=== PATIENT | male | born 1985 | race Caucasian/White ===

== ENCOUNTER 2018-11-03 08:04 | Day surgery (SDC) | payer OTHER ==
[~2018-11-03 08:04] MED LIST: Lactated Ringers 1,000 ML IV SCH; Sodium Chloride 0.9% 10 ML Syringe FLUSH PRN; Sodium Chloride 0.9% 2.5 ML Syringe FLUSH PRN
--- NOTE | 2018-11-03 09:06 | PCM.PREANE ---
Preanesthetic Assessment - Anesthesia/Transfusion/Family Hx Anesthesia History: Prior Anesthesia Without Reaction Transfusion History: No Prior Transfusion(s) Type of Transfusion Reactions: Reports: Unknown Intubation History: Unknown - Review of Systems General: No Symptoms Pulmonary: No Symptoms Cardiovascular: No Symptoms Gastrointestinal: No Symptoms Neurological: No Symptoms Other: Reports: None - Physical Assessment NPO Status Date: 11/02/18 NPO Status Time: 23:00 O2 Sat by Pulse Oximetry: 97 Respiratory Rate: 16 Vital Signs: Last Vital Signs Temp 98.8 F 11/03/18 08:30 Pulse 72 11/03/18 08:30 Resp 16 11/03/18 08:30 BP 125/76 11/03/18 08:30 Pulse Ox 97 11/03/18 08:30 Height: 5 ft 10 in Weight: 135.624 kg ASA Class: 2 Mental Status: Alert & Oriented x3 Airway Class: Mallampati = 1 Dentition: Reports: Normal Dentition ROM/Head Extension: Full Lungs: Clear to Auscultation, Normal Respiratory Effort Cardiovascular: Regular Rate, Regular Rhythm - Allergies Allergies/Adverse Reactions: Allergies Allergy/AdvReac Type Severity Reaction Status Date / Time Penicillins Allergy Anxiety Verified 10/29/18 08:07 tuna Allergy Diarrhea Uncoded 08/26/18 10:13 - Blood Blood Available: No - Anesthesia Plan Pre-Op Medication Ordered: None - Acknowledgements Anesthesia Type Planned: General Anesthesia, MAC Pt an Appropriate Candidate for the Planned Anesthesia: Yes Alternatives and Risks of Anesthesia Discussed w Pt/Guardian: Yes Pt/Guardian Understands and Agrees with Anesthesia Plan: Yes Additional Comments: PMH: recent bout of diverticulitis, WPW s/p ablation. still having asymptomatic episodes on 30 day holter monitoring, mo with bmi of 44 PLAN: mac/tiva PreAnesthesia Questionnaire HEENT History: Other HEENT History: wears glasses Cardiovascular History: Reports: Other (See Below) Other Cardiovascular History: grey parkinson white syndrome Respiratory History: Reports: None Gastrointestinal History: Reports: Other (See Below) Other Gastrointestinal History: diverticulitis Genitourinary History: Reports: None Musculoskeletal History: Reports: Fracture Other Musculoskeletal History: hx fx wrist Neurological History: Reports: None Psychiatric History: Reports: None Endocrine/Metabolic History: Reports: Obesity/BMI 30+ Hematologic History: Reports: None Immunologic History: Reports: None Oncologic (Cancer) History: Reports: None Dermatologic History: Reports: None - Infectious Disease History Infectious Disease History: Reports: Chicken Pox - Past Surgical History Head Surgeries/Procedures: Reports: None HEENT Surgical History: Reports: None Cardiovascular Surgical History: Reports: Cardiac Ablation, Other (See Below) Other Cardiovascular Surgeries/Procedures: cardiac ablation x2 for grey- parkinson-white syndrome in and GI Surgical History: Reports: Hernia, Inguinal Other GI Surgeries/Procedures: inguinal hernia repair Male Surgical History: Reports: Vasectomy Musculoskeletal Surgical History: Reports: Arthroscopic Knee Other Musculoskeletal Surgeries/Procedures:: left knee arthroscopy - SUBSTANCE USE Smoking Status *Q: Current Every Day Smoker Tobacco Use Within Last Twelve Months: Cigarettes Recreational Drug Use History: No - HOME MEDS Home Medications: Home Meds Acetaminophen [Tylenol Extra Strength] 1 - 2 tab PO ASDIRECTED PRN 08/26/18 [ History] Inulin/Chromium Picolinate [Fiber Gummies] 1 tab.chew CHEW DAILY 10/29/18 [ History] L.acidoph,Paracasei, B.lactis [Probiotic] 1 tab PO DAILY 10/29/18 [History] Multivitamin [Multivitamins] 1 tab PO DAILY 10/29/18 [History] - CURRENT (IN HOUSE) MEDS Current Meds: Current Medications Lactated Ringer's (Ringers, Lactated) 1,000 mls @ 125 mls/hr IV ASDIRECTED ALBERTA Last Admin: 11/03/18 08:47 Dose: 125 mls/hr Sodium Chloride (Saline Flush) 10 ml FLUSH ASDIRECTED PRN PRN Reason: Keep Vein Open Sodium Chloride (Saline Flush) 2.5 ml FLUSH ASDIRECTED PRN PRN Reason: Keep Vein Open Sodium Chloride (Saline Flush) 10 ml FLUSH ASDIRECTED PRN PRN Reason: Keep Vein Open Sodium Chloride (Saline Flush) 2.5 ml FLUSH ASDIRECTED PRN PRN Reason: Keep Vein Open
[2018-11-03] MEDS ORDERED: Propofol 200 MG/20 ML SDV ONE ×2 (09:49→10:22)
[2018-11-03] MEDS ORDERED: Midazolam 1 MG/ML 2 ML SDV ONE (09:49)
[2018-11-03] MEDS ORDERED: fentaNYL 100 MCG/2 ML SDV ONE (09:49)
--- NOTE | 2018-11-03 10:37 | PCM.OPNOTE ---
- General Post-Op/Procedure Note Date of Surgery/Procedure: 11/03/18 Operative Procedure(s): EGD and Colonoscopy Findings: EGD showed some reflux and the colonoscopy was normal. Pre Op Diagnosis: GERD and history of diverticulosis Post-Op Diagnosis: Reflux Anesthesia Technique: [place] Primary Surgeon: Melisa Benitez Complications: None Condition: Good
--- NOTE | 2018-11-03 11:32 | PCM.POSTAN ---
POST ANESTHESIA ASSESSMENT - MENTAL STATUS Mental Status: Alert, Oriented - RESPIRATORY Respiratory Status: Respiratory Rate WNL, Airway Patent, O2 Saturation Stable - CARDIOVASCULAR CV Status: Pulse Rate WNL, Blood Pressure Stable - GASTROINTESTINAL GI Status: No Symptoms - POST OP HYDRATION Hydration Status: Adequate & Stable
--- NOTE | 2018-11-03 11:33 | PCM48HPAN ---
Post Anesthesia Note - EVALUATION WITHIN 48HRS OF ANESTHETIC Vital Signs in Normal Range: Yes Patient Participated in Evaluation: Yes Respiratory Function Stable: Yes Airway Patent: Yes Cardiovascular Function Stable: Yes Hydration Status Stable: Yes Pain Control Satisfactory: Yes Nausea and Vomiting Control Satisfactory: Yes Mental Status Recovered: Yes Resp Rate: 48
[2018-11-03 12:50] VITALS: BP 116/61
--- NOTE | 2018-11-04 12:18 | OR ---
SURGEON: IDALIA FRANCISCO MD DATE OF PROCEDURE: 11/03/2018 PREOPERATIVE DIAGNOSES: 1. History of diverticulitis. 2. History of hiatal hernia with gastroesophageal reflux disease. POSTOPERATIVE DIAGNOSES: 1. Gastroesophageal reflux disease. 2. Diverticulosis. PROCEDURES PERFORMED: Diagnostic esophagogastroduodenoscopy and colonoscopy. ANESTHESIA: MAC. INSTRUMENT USED: Olympus endoscope and colonoscope. EXTENT OF EXAM: To the cecum. PREPARATION: Good. LIMITATIONS: None. INDICATION FOR EXAMINATION: The patient is a 33-year-old male who was recently treated for acute diverticulitis. He also has history of hiatal hernia associated with GERD. His GERD symptoms have been worsening despite a medical treatment. His diverticulitis has resolved; however, he continues to have frequent bowel movements. We discussed the need for diagnostic EGD and colonoscopy. The patient and I discussed the procedure, the expected perioperative course, and risks including bleeding, infection, or damage to surrounding structures including perforation. The patient verbalized understanding and wishes to proceed. PROCEDURE IN DETAIL: The patient was brought to the endoscopy suite and placed in a left lateral decubitus position. A time-out was completed verifying the patient's name, age, date of , allergies, and procedure to be performed. Monitored anesthesia care was induced and continuous oxygen was provided via nasal cannula throughout the procedure. A bite block was placed in the patient's mouth. After adequate sedation was achieved, a well lubricated endoscope was placed in the patient's mouth and advanced under direct visualization to the second portion of duodenum. This appeared normal and a photograph was taken. The scope was then straightened out and fully withdrawn while examining the color, texture, anatomy, and integrity of the mucosa from the cecum to the anal canal. The duodenum and stomach both appeared normal. When I brought the scope into the stomach and retroflexed, I did not see any evidence of a hiatal hernia. Biopsies were taken of the gastric antrum, body, and fundus and sent for histologic review and H. pylori testing. The scope was brought into the distal esophagus. This appeared normal and a photograph was taken. A biopsy was taken of the distal esophageal mucosa and sent to pathology to look for any signs of esophagitis. The remainder of the esophageal mucosa was free of pathology. The scope was then removed and this portion of procedure was terminated. A digital rectal exam was performed. This exam was within normal limits. A well lubricated colonoscope was inserted in the rectum and advanced under direct visualization to the level of the cecum. The cecum was identified by both visual and anatomic landmarks. A photograph was taken of the cecal cap as well as with the scope retroflexed within the cecum. The scope was then straightened out and fully withdrawn while examining the color, texture, anatomy, and integrity of the mucosa from the cecum to the anal canal. The findings were consistent with grossly normal appearing colonic mucosa. I did not see a large burden of diverticula within the sigmoid colon. The scope was then brought into the rectum and retroflexed to allow visualization of the anal canal opening. This appeared normal and a photograph was taken. The scope was then straightened out and fully withdrawn. The cecum to anus time was 7 minutes. The patient tolerated the procedure well and was taken to PACU in stable condition. ENDOSCOPIC DIAGNOSES: 1. Gastroesophageal reflux disease. 2. Diverticulosis. RECOMMENDATIONS: Follow up in clinic in 2 weeks. FRANNY العراقي /[id number]
== END 2018-11-03 11:20 | disposition home or self-care (01) ==
LOC: MW.SDS 08:04
PROVIDERS: ATTEND Surgery
DX: K21.9 Gastro-esophageal reflux disease without esophagitis (principal); K29.50 Unspecified chronic gastritis without bleeding; K20.9 Esophagitis, unspecified; K52.9 Noninfective gastroenteritis and colitis, unspecified; K57.30 Diverticulosis of large intestine without perforation or abscess without bleeding; E66.01 Morbid (severe) obesity due to excess calories; Z68.41 Body mass index [BMI] 40.0-44.9, adult; F17.210 Nicotine dependence, cigarettes, uncomplicated; F17.220 Nicotine dependence, chewing tobacco, uncomplicated; Z88.0 Allergy status to penicillin; Z91.013 Allergy to seafood
CPT/HCPCS: 88305; 88312; J2250; J2704; J3010; J7120

== ENCOUNTER 2019-11-26 15:21 | Emergency (ER) | payer OTHER ==
--- NOTE | 2019-11-26 16:54 | CR ---
Chest: 2 views of the chest were obtained. Comparison: Prior chest x-ray of 09/28/16. Heart size and mediastinum are normal. Lungs are clear with no acute parenchymal change. Bony structures shows slight disc space narrowing is scattered throughout the spine with several mild anterior wedge deformities which appear to be old. Impression: 1. Nothing acute is appreciated on 2 view chest x-ray. Diagnostic code #2 Study was dictated in Mountain Standard Time
--- NOTE | 2019-11-26 17:01 | EDM.PDOC ---
ED [facility] GENERAL MEDICAL PROBLEM - General Chief Complaint: Respiratory Problem Stated Complaint: CHEST PAIN/ COUGH Time Seen by Provider: 11/26/19 15:40 - History of Present Illness INITIAL COMMENTS - FREE TEXT/NARRATIVE: HPI 34-year-old male presents for evaluation of a cough of one day duration. Denies myalgias, fevers, chills, sore throat, runny nose, or further symptoms. 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 No history of DVT, PE, hemoptysis, exogenous estrogen use, immobilization, recent surgery, calf tenderness or swelling. M/S/F/SocHx notable for: please see HPI; remainder reviewed with patient and in chart. ROS: Negative constitutional, eye, cardiovascular, pulmonary, GI, , MSK, skin , neurologic, psychiatric, endocrine unless noted in the HPI. Exam HR 78, RR 16, BP 150/92, T 36.6C, SaO2 97% on room air. Gen: Pleasant, non-toxic appearing, resting comfortably. HEENT: Normocephalic, atraumatic. * Eyes - Bilateral eyes without injection, swelling, or discharge, no proptosis or periorbital erythema, swelling, warmth, or tenderness. * Mouth - Anterior oropharynx with MMM, no lesions appreciated, floor of the mouth is soft and without swelling. Posterior oropharynx with mild erythema but without swelling, exudate, lesions, uvula midline. * Nose - Nares with scant crusting and discharge. * Neck - Neck supple without posterior or anterior cervical chain lymphadenopathy bilaterally. Resp: Clear to auscultation bilaterally, normal work of breathing without accessory muscle usage. Infrequent nonproductive cough observed. Card: Regular rate and rhythm with no murmurs, rubs or gallops. Extremities warm and well perfused. GI: Non-tender to palpation throughout all quadrants, no masses or organomegaly appreciated. : Deferred MSK: No visible deformities, strength and tone without visually appreciable deficit. Neuro: alert and oriented 3, no facial asymmetry, vision and hearing WNL. Heme/Lymph: Deferred Skin: Normal color with no visible lesions (other than noted above). Psych: Mood and affect appropriate. Imaging CXR: nothing acute is appreciated on two view chest x-ray. MDM Previous chart, nursing note, and vitals reviewed. A: 34-year-old male presents for evaluation of a cough of one day duration. DDx: viral rhinosinusitis, bacterial rhinosinusitis, pharyngitis (HSV vs viral NOS vs GAS vs bacterial NOS)], EBV, peritonsillar cellulitis, GLASS CUTTER HELPER, RPA, Diego' s angina, epiglottitis. Evaluation: overall presentation is most consistent with a viral respiratory tract infection, no concerning travel history identifying, no features suggestive of influenza. Given the absence of a fever, productive cough, or focal infiltrate on x-ray, consider pneumonia to be effectively excluded. Patient is PE rule out criteria negative. No features suggestive of ACS, unstable angina, and the patients chest x-ray is without discernible abnormalities - which in the context of a unremarkable history, ROS, exam - effectively excludes pericardial effusion, pleural effusion, or other abnormalities. Patient was discharged with instructions to take OTC antitussives and return to care as needed. As the patient is without chest pain , shortness breath, or dyspnea on exertion consider unstable angina to be effectively excluded. ED Course: No clinically significant changes. Disposition: Discharge with return to care as needed. Return to care indications provided. Impression: cough. (please reference below for remainder of encounter information) PERC negative (age >= 50 - N, HR >= 100 - N, SaO2 < 95 - N, prior DVT - N, trauma or surgery in last 4 weeks - N, hemoptysis - N, exogenous estrogen - N, unilateral leg swelling - N). Chest Pain Score (Numeric/FACES): 6 - Related Data Allergies Allergy/AdvReac Type Severity Reaction Status Date / Time Penicillins Allergy Anxiety Verified 11/26/19 15:35 tuna Allergy Diarrhea Uncoded 11/26/19 15:35 Home Meds: Home Meds Acetaminophen [Tylenol Extra Strength] 1 - 2 tab PO ASDIRECTED PRN 08/26/18 [ History] Inulin/Chromium Picolinate [Fiber Gummies] 1 tab.chew CHEW DAILY 10/29/18 [ History] L.acidoph,Paracasei, B.lactis [Probiotic] 1 tab PO DAILY 10/29/18 [History] Multivitamin [Multivitamins] 1 tab PO DAILY 10/29/18 [History] Past Medical History HEENT History: Reports: Impaired Vision Other HEENT History: wears glasses Cardiovascular History: Reports: Other (See Below) Other Cardiovascular History: grey parkinson white syndrome Respiratory History: Reports: None Gastrointestinal History: Reports: Other (See Below) Other Gastrointestinal History: diverticulitis Genitourinary History: Reports: None Musculoskeletal History: Reports: Fracture Other Musculoskeletal History: hx fx wrist Neurological History: Reports: None Psychiatric History: Reports: None Endocrine/Metabolic History: Reports: Obesity/BMI 30+ Hematologic History: Reports: None Immunologic History: Reports: None Oncologic (Cancer) History: Reports: None Dermatologic History: Reports: None - Infectious Disease History Infectious Disease History: Reports: Chicken Pox - Past Surgical History Head Surgeries/Procedures: Reports: None HEENT Surgical History: Reports: None Cardiovascular Surgical History: Reports: Cardiac Ablation, Other (See Below) Other Cardiovascular Surgeries/Procedures: cardiac ablation x2 for grey- parkinson-white syndrome in and GI Surgical History: Reports: Hernia, Inguinal Other GI Surgeries/Procedures: inguinal hernia repair Male Surgical History: Reports: Vasectomy Musculoskeletal Surgical History: Reports: Arthroscopic Knee Other Musculoskeletal Surgeries/Procedures:: left knee arthroscopy Social & Family History - Family History Family Medical History: Noncontributory - Tobacco Use Smoking Status *Q: Current Every Day Smoker Years of Tobacco use: 20 Packs/Tins Daily: 1 - Caffeine Use Caffeine Use: Reports: Coffee, Energy Drinks, Soda, Tea - Recreational Drug Use Recreational Drug Use: No ED ROS GENERAL - Review of Systems Review Of Systems: See Below ED EXAM, GENERAL - Physical Exam Exam: See Below Course - Vital Signs Last Recorded V/S: Last Vital Signs Temp 36.6 C 11/26/19 15:35 Pulse 78 11/26/19 15:35 Resp 16 11/26/19 15:35 BP 150/92 H 11/26/19 15:35 Pulse Ox 97 11/26/19 15:35 Departure - Departure Time of Disposition: 17:01 Disposition: Home, Self-Care 01 Clinical Impression: Cough - Discharge Information Referrals: Jose Luis Oh MD [Primary Care Provider] - Additional Instructions: You were in seen in the [facility] Emergency Department for evaluation of a cough, the time of your evaluation you are tentatively believed to have a viral respiratory tract infection. You may use wkad-osg-thouwer cough medications for symptomatic treatment. Please read and follow all of the instructions below. Please follow up with your primary care physician and 4-5 days if not significant improved. When calling for follow-up care, please make the office aware that this follow-up is from your recent emergency room visit. If for any reason you are refused follow-up, please contact the [facility] Emergency Department at and asked to speak to the emergency department charge nurse. Your care today was limited to identifying and treating emergent medical problems only. Many people have subtle differences in their test results that require follow up with their outpatient physician(s) to correctly determine if this represents a normal variation or concerning abnormality with respect to your specific health. The care given to you today was limited to identifying and treating emergent medical problems - you need to request a copy of all of your medical records from today's visit and follow up with your outpatient physician(s) to review both today's visit and your overall health. If you have any new symptoms or if you are at all concerned about your health please return immediately to the emergency department. Prescriptions: If you are uninsured or have financial difficulties with filling your prescription(s), you may consider using a free pharmacy discount service such as [employer] ([employer]) or [employer] ([employer]). These services allow you to search for a medication on your phone (or computer) and obtain a coupon that usually has a significant discount from the list nathan at a pharmacy. Your physician as well as [facility] does not have a financial relationship with either of these services. You may also wish to speak with your physician to determine if lower cost prescriptions are possible. Obtaining primary care: 1. [facility] provides pediatrics (children), family medicine (children, adults, and some obstetrical care), and internal medicine (adults). Further specialty care is also available. Same day appointments are available. They may be contacted at [phone] and are open Kyree through Friday 8 AM to 5 PM. The [facility] clinics are located at [facility], [address] [place], [place] [address]. 2. [facility] offers family medicine, internal medicine, womens health, and further specialty care. [facility] may be contacted at [phone]. [facility] is located at [address] [place], [address]. 3. If you have health insurance, please also contact your insurer for a list of accepting providers under your policy, you may contact these providers for further health care. Occupational health: Work related injuries may consider following up with [facility], . Occupational health services are located at [address] [place] [address] and are open Friday through Friday from 7: 30 am to 5:00 pm. Obstetrical and Gynecological Care: [facility], , Friday through Friday 8 AM to [address] [place] [address]. Eyecare: If you have an eye injury you should follow up with your iron melter or with [facility], at [phone] or [phone] , they are located at [address] [place] [address]. Dental Care Duncan Lopez DDS. [address] [facility] [place], [place]. Ph. [phone] Fidel Lopez DDS MS. [address] [facility] [address], [place], [place]. Ph. Matty Grossman DDS. 10 09/23 [facility] [address], [place], [place]. Ph. [phone] Marko Terrell DDS. [address] [facility] [address] [place], [place]. Ph. [phone] Colby Paez DDS PC. [address] [facility] [address] [place], [place]. Ph. Quinten Alva DDS. [address] [facility]. Ph. [phone] [facility]. [address] [place], [place]. Ph. [phone] [facility]. [address], [place], [place]. Ph. [phone] [facility] [address] [place] [address]. Ph. [facility]. [address] [place] [address] [address]. [place], [place]. Ph. [phone] [facility]. [address], [place], [place]. Ph. Cough Home Care Instructions You were seen in the emergency department today for evaluation of your cough. Based upon the evaluation today your cough does not appear to be caused by bacterial pneumonia, rather a virus is the cause of your cough. These types of infections cannot be treated by antibiotics, your body will fight this infection and clear the virus. Most people get better in 7-10 days. It is not uncommon to have a mild nonproductive cough last for up to several weeks following the resolution of your illness. If you continue have a cough beyond 7- 10 days please follow-up with your primary care physician. You may do the following treatments to reduce your symptoms: * Ucap-fft-efkklne cough medications containing dextromethorphan may reduce the frequency and severity of your coughing. Please take as directed on the bottle. Please read all warnings on the bottle. Do not take this medication if you have any allergies to any of the ingredients listed on the bottle. * Ibuprofen may be used to reduce fever, pain, and inflammation. You may take 600 mg (three 200 mg ukdh-euc-bthwkka tablets) every 6-8 hours. Please read the warnings below regarding ibuprofen. Do not take this medication if you are or allergic to ibuprofen, Motrin, Aleve, or naproxen. * Please stay well-hydrated and get adequate rest. * If you are a smoker please stop smoking. * Pujq-zqw-gqenkjt lozenges or tea with honey may be used for sore throat. Please return to the emergency department if any of the following occur: * Increasing fever. * Worsening cough or a cough that becomes productive of thick sputum. * A cough that temporarily gets better and then over the several days get significantly worse. This may occur if you developed a bacterial pneumonia following your viral infection. This rarely occurs and there is no prevention at this point in your infection. * Chest pain. * Shortness of breath or difficulty breathing. * If you are otherwise concerned about your health. Sepsis Event Note - Evaluation Sepsis Screening Result: No Definite Risk - Focused Exam Vital Signs: Vital Signs Temp Pulse Resp BP Pulse Ox 11/26/19 15:35 36.6 C 78 16 150/92 H 97 Date Exam was Performed: 11/26/19 Time Exam was Performed: 17:00
[2019-11-26 17:34] VITALS: BP 133/90; PULSE 89
== END 2019-11-26 17:34 | disposition home or self-care (01) ==
LOC: MW.ED 15:21
DX: R05 Cough (principal); E66.9 Obesity, unspecified; F17.210 Nicotine dependence, cigarettes, uncomplicated; Z88.0 Allergy status to penicillin
CPT/HCPCS: 71046; 71046-26; 99283; 99283-25

== ENCOUNTER 2021-10-21 16:34 | Emergency (ER) | payer BC, OTHER ==
[2021-10-21 16:46] VITALS: BP 148/100; PULSE 102
== END 2021-10-21 18:23 | disposition home or self-care (01) ==
LOC: MW.ED 16:34
DX: S93.401A Sprain of unspecified ligament of right ankle, initial encounter (principal); E66.9 Obesity, unspecified; Z68.42 Body mass index [BMI] 45.0-49.9, adult; Z88.0 Allergy status to penicillin; Z91.013 Allergy to seafood; Y93.72 Activity, wrestling
CPT/HCPCS: 73610-26-RT; 73610-RT; 99283-25

== ENCOUNTER 2022-06-30 01:25 | Emergency (ER) | payer BC ==
[2022-06-30] MEDS ORDERED: Iopamidol 755 Mg/ML 100 ML Bottle IV ONE (01:26)
== END 2022-06-30 05:40 | disposition home or self-care (01) ==
LOC: MW.ED 01:25
DX: K57.92 Diverticulitis of intestine, part unspecified, without perforation or abscess without bleeding (principal)
CPT/HCPCS: 74177; 99284; Q9967

== ENCOUNTER 2023-01-05 07:37 | Emergency (ER) | payer BC ==
[2023-01-05] MEDS ORDERED: Tetracaine HCl/PF 0.5% 4 ML Bottle EYEBOTH ONE (07:48)
[2023-01-05 07:50] VITALS: BP 134/89; PULSE 65
[2023-01-05] MEDS ORDERED: Ibuprofen 600 MG Tab PO ONE (08:08)
[2023-01-05] MEDS ORDERED: Diphtheria,Pertussis(Acell),Tetanus Vaccine 0.5 ML Syringe IM ONE (08:09)
[2023-01-05] MEDS ORDERED: Gentamicin 0.3% Ophth Soln 5 ML Bottle EYERT SCH (08:30)
== END 2023-01-05 08:35 | disposition home or self-care (01) ==
LOC: MW.ED 07:37
DX: H16.131 Photokeratitis, right eye (principal); H57.89 Other specified disorders of eye and adnexa; E66.9 Obesity, unspecified; Z68.41 Body mass index [BMI] 40.0-44.9, adult; Z23 Encounter for immunization; Z88.0 Allergy status to penicillin; Z91.013 Allergy to seafood
CPT/HCPCS: 90471; 90715; 99283; A9270; J3490

== ENCOUNTER 2023-12-31 11:18 | Emergency (ER) | payer BC ==
[2023-12-31 12:05] LABS: BASOPHILS ABSOLUTE AUTO 0.03 K/uL (0.00-0.20); BASOPHILS PERCENT AUTO 0.3 % (0.0-1.0); EOSINOPHILS ABSOLUTE AUTO 0.17 K/uL (0.00-0.45); EOSINOPHILS PERCENT AUTO 1.6 % (0.0-6.0); HEMOGLOBIN 14.7 g/dL (14.0-18.0); IMMATURE GRAN ABSOLUTE AUTO 0.03 K/uL (0.00-0.05); IMMATURE GRAN PERCENT AUTO 0.3 % (0.0-0.4); LYMPHOCYTES ABSOLUTE AUTO 1.57 K/uL (1.00-4.80); LYMPHOCYTES PERCENT AUTO 14.5 % (24.0-44.0); MEAN CORPUSCULAR HEMOGLOBIN 30.1 pg (28.0-32.0); MEAN CORPUSCULAR HGB CONC 34.2 g/dL (32.0-36.0); MEAN CORPUSCULAR VOLUME 88.1 fL (83.0-99.0); MEAN PLATELET VOLUME 8.8 fL (9.4-12.4); MONOCYTES ABSOLUTE AUTO 1.13 K/uL (0.00-0.80); MONOCYTES PERCENT AUTO 10.4 % (0.0-8.0); NEUTROPHILS ABSOLUTE AUTO 7.92 K/uL (1.80-7.70); NEUTROPHILS PERCENT AUTO 72.9 % (41.0-71.0); PLATELET COUNT,PLT 407 K/uL (150-400); RED BLOOD CELL COUNT 4.88 M/uL (4.52-5.90); WHITE BLOOD CELL COUNT,WBC 10.85 K/uL (3.9-11.3)
[2023-12-31 12:08] LABS: APPEARANCE,URINE CLEAR; BILIRUBIN,URINE NEGATIVE (NEGATIVE); COLOR,URINE YELLOW; GLUCOSE,URINE NEGATIVE (NEGATIVE); KETONES,URINE TRACE mg/dL (NEGATIVE); LEUKOCYTE ESTERASE,URINE NEGATIVE (NEGATIVE); NITRITE,URINE NEGATIVE (NEGATIVE); OCCULT BLOOD,URINE NEGATIVE (NEGATIVE); PH,URINE 6.5 (5.0-8.0); PROTEIN,URINE NEGATIVE (NEGATIVE); UROBILINOGEN,URINE 0.2 EU/dL (<2.0)
[2023-12-31 12:16] LABS: A/G RATIO 0.9 (0.9-1.6); ALBUMIN 3.6 g/dL (3.4-5.0); BILIRUBIN TOTAL 0.6 mg/dL (0.2-1.0); CALCIUM 9.3 mg/dL (8.5-10.1); CARBON DIOXIDE,CO2 27.2 mmol/L (21.0-32.0); CREATININE 1.3 mg/dL (0.8-1.3); EST CRCL DRUG DOSING (CG) 79.55 mL/min; POTASSIUM,K 4.4 mmol/L (3.5-5.1); PROTEIN TOTAL,TP 7.7 g/dL (6.4-8.2)
[2023-12-31] MEDS: Sodium Chloride 0.9% 1,000 ML IV STA (12:28)
[2023-12-31] MEDS: Iopamidol 755 MG/ML 500 ML Multipack Bottle IVPUSH STA (12:50)
[2023-12-31 13:35] VITALS: BP 141/86; PULSE 81
== END 2023-12-31 13:36 | disposition home or self-care (01) ==
LOC: MW.ED 11:18
DX: K57.92 Diverticulitis of intestine, part unspecified, without perforation or abscess without bleeding (principal); E66.9 Obesity, unspecified; Z88.0 Allergy status to penicillin; Z91.013 Allergy to seafood; Z79.899 Other long term (current) drug therapy; Z75.8 Other problems related to medical facilities and other health care; Z68.42 Body mass index [BMI] 45.0-49.9, adult
CPT/HCPCS: 36415; 74177; 80053; 81003; 83690; 85025; 96360; 99284; J7030; Q9967

== ENCOUNTER 2024-02-01 21:18 | Emergency (ER) | payer BC ==
[2024-02-01] MEDS: Sodium Chloride 0.9% 10 ML Syringe FLUSH PRN (23:51)
[2024-02-01] MEDS: Sodium Chloride 0.9% 2.5 ML Syringe FLUSH PRN (23:51)
[2024-02-01] MEDS: Sodium Chloride 0.9% 1,000 ML IV ONE (23:51)
[2024-02-01] MEDS: Ondansetron 4 MG/2 ML SDV IVPUSH ONE (23:51)
[2024-02-01] MEDS: Morphine 2 MG/ML SYRINGE IVPUSH ONE (23:51)
[2024-02-02 00:09] LABS: HEMATOCRIT 39.3 % (42.0-52.0); HEMOGLOBIN 13.4 g/dL (14.0-18.0); MEAN CORPUSCULAR HEMOGLOBIN 29.6 pg (28.0-32.0); MEAN CORPUSCULAR HGB CONC 34.1 g/dL (32.0-36.0); MEAN CORPUSCULAR VOLUME 86.8 fL (83.0-99.0); MEAN PLATELET VOLUME 8.5 fL (9.4-12.4); PLATELET COUNT,PLT 481 K/uL (150-400); RED BLOOD CELL COUNT 4.53 M/uL (4.52-5.90); WHITE BLOOD CELL COUNT,WBC 13.26 K/uL (3.9-11.3)
[2024-02-02 00:30] LABS: A/G RATIO 0.7 (0.9-1.6); BILIRUBIN TOTAL 0.4 mg/dL (0.2-1.0); CALCIUM 8.9 mg/dL (8.5-10.1); CARBON DIOXIDE,CO2 24.1 mmol/L (21.0-32.0); CREATININE 1.1 mg/dL (0.8-1.3); EST CRCL DRUG DOSING (CG) 94.02 mL/min; PROTEIN TOTAL,TP 7.5 g/dL (6.4-8.2)
[2024-02-02] MEDS: Piperacillin/Tazobactam 4.5 GM in Sodium Chloride 0.9% 100 ML IV ONE ×2 (00:34→09:28)
[2024-02-02 00:35] LABS: EOSINOPHILS PERCENT MAN 3 % (0-6); LYMPHOCYTES ABSOLUTE MAN 1.59 K/uL (1.00-4.80); LYMPHOCYTES PERCENT MAN 12 % (24-44); MONOCYTES ABSOLUTE MAN 1.33 K/uL (0.00-0.80); MONOCYTES PERCENT MAN 10 % (0-8); SEG NEUTROPHILS ABSOLUTE MAN 9.95 K/uL (1.80-7.70); SEG NEUTROPHILS PERCENT MAN 75 % (41-71)
[2024-02-02 00:59] LABS: LACTIC ACID 0.6 mmol/L (0.4-2.0)
[2024-02-02 01:52] LABS: APPEARANCE,URINE CLEAR; BILIRUBIN,URINE NEGATIVE (NEGATIVE); COLOR,URINE YELLOW; GLUCOSE,URINE NEGATIVE (NEGATIVE); KETONES,URINE TRACE mg/dL (NEGATIVE); LEUKOCYTE ESTERASE,URINE TRACE (NEGATIVE); NITRITE,URINE NEGATIVE (NEGATIVE); OCCULT BLOOD,URINE TRACE-INTACT (NEGATIVE); PROTEIN,URINE NEGATIVE (NEGATIVE); UROBILINOGEN,URINE 0.2 EU/dL (<2.0)
[2024-02-02 01:59] LABS: BACTERIA,URINE RARE (NEGATIVE); EPITHELIAL CELLS,URINE NOT SEEN (NONE-FEW); MUCUS,URINE LIGHT (NONE-MOD)
[2024-02-02] MEDS: Ketorolac 30 MG/ML SDV IVPUSH ONE (02:38)
[2024-02-02] MEDS: Morphine 2 MG/ML SYRINGE IVPUSH ONE ×2 (02:39→05:30)
[2024-02-02] MEDS: Iopamidol 755 MG/ML 500 ML Multipack Bottle IVPUSH STA (08:06)
[2024-02-02] MEDS: Morphine 4 MG/ML Syringe IVPUSH ONE (08:12)
[2024-02-02] MEDS: HYDROmorphone 0.5 MG/0.5 ML Syringe IVPUSH ONE ×3 (09:27→12:10)
[2024-02-02 09:45] VITALS: BP 147/85; PULSE 97
== END 2024-02-02 12:21 ==
LOC: MW.ED 21:18
DX: K57.30 Diverticulosis of large intestine without perforation or abscess without bleeding (principal); E66.9 Obesity, unspecified; Z88.0 Allergy status to penicillin; Z88.8 Allergy status to other drugs, medicaments and biological substances; Z79.899 Other long term (current) drug therapy; Z68.41 Body mass index [BMI] 40.0-44.9, adult
CPT/HCPCS: 36415; 74018; 74177; 80053; 81001; 83605; 83690; 85025; 87040; 96365; 96366; 96375; 96376; 99285; J1170; J1885; J2270; J2405; J2543; J3490; J7030; Q9967

== ENCOUNTER 2024-03-15 06:58 | Emergency (ER) | payer BC ==
[2024-03-15] MEDS ORDERED: Naloxone 0.4 MG/ML SDV IVPUSH PRN ×2 (07:33→12:16)
[2024-03-15 07:36] LABS: BASOPHILS ABSOLUTE AUTO 0.04 K/uL (0.00-0.20); BASOPHILS PERCENT AUTO 0.4 % (0.0-1.0); EOSINOPHILS ABSOLUTE AUTO 0.18 K/uL (0.00-0.45); EOSINOPHILS PERCENT AUTO 1.6 % (0.0-6.0); HEMATOCRIT 39.5 % (42.0-52.0); HEMOGLOBIN 13.3 g/dL (14.0-18.0); IMMATURE GRAN ABSOLUTE AUTO 0.04 K/uL (0.00-0.05); IMMATURE GRAN PERCENT AUTO 0.4 % (0.0-0.4); LYMPHOCYTES ABSOLUTE AUTO 1.63 K/uL (1.00-4.80); LYMPHOCYTES PERCENT AUTO 14.6 % (24.0-44.0); MEAN CORPUSCULAR HEMOGLOBIN 29.4 pg (28.0-32.0); MEAN CORPUSCULAR HGB CONC 33.7 g/dL (32.0-36.0); MEAN CORPUSCULAR VOLUME 87.4 fL (83.0-99.0); MEAN PLATELET VOLUME 8.7 fL (9.4-12.4); MONOCYTES ABSOLUTE AUTO 1.32 K/uL (0.00-0.80); MONOCYTES PERCENT AUTO 11.8 % (0.0-8.0); NEUTROPHILS ABSOLUTE AUTO 7.94 K/uL (1.80-7.70); NEUTROPHILS PERCENT AUTO 71.2 % (41.0-71.0); PLATELET COUNT,PLT 355 K/uL (150-400); RED BLOOD CELL COUNT 4.52 M/uL (4.52-5.90); WHITE BLOOD CELL COUNT,WBC 11.15 K/uL (3.9-11.3)
[2024-03-15] MEDS: Morphine 2 MG/ML SYRINGE IVPUSH ONE (07:41)
[2024-03-15] MEDS: Sodium Chloride 0.9% 2.5 ML Syringe FLUSH PRN (07:42)
[2024-03-15] MEDS: Sodium Chloride 0.9% 10 ML Syringe FLUSH PRN (07:42)
[2024-03-15 08:00] LABS: A/G RATIO 0.8 (0.9-1.6); ALBUMIN 3.4 g/dL (3.4-5.0); BILIRUBIN TOTAL 0.7 mg/dL (0.2-1.0); CARBON DIOXIDE,CO2 25.9 mmol/L (21.0-32.0); EST CRCL DRUG DOSING (CG) 102.4 mL/min; POTASSIUM,K 4.3 mmol/L (3.5-5.1); PROTEIN TOTAL,TP 7.6 g/dL (6.4-8.2)
[2024-03-15] MEDS: Sodium Chloride 0.9% 1,000 ML IV ONE (08:35)
[2024-03-15] MEDS: Morphine 4 MG/ML Syringe IVPUSH PRN (08:35)
[2024-03-15 08:57] LABS: APPEARANCE,URINE CLEAR; BILIRUBIN,URINE NEGATIVE (NEGATIVE); COLOR,URINE YELLOW; GLUCOSE,URINE NEGATIVE (NEGATIVE); KETONES,URINE NEGATIVE (NEGATIVE); LEUKOCYTE ESTERASE,URINE NEGATIVE (NEGATIVE); NITRITE,URINE NEGATIVE (NEGATIVE); OCCULT BLOOD,URINE NEGATIVE (NEGATIVE); PH,URINE 6.5 (5.0-8.0); PROTEIN,URINE NEGATIVE (NEGATIVE); UROBILINOGEN,URINE 0.2 EU/dL (<2.0)
[2024-03-15] MEDS: Iopamidol 755 MG/ML 500 ML Multipack Bottle IVPUSH STA (09:12)
[2024-03-15 09:14] LABS: BACTERIA,URINE NOT SEEN (NEGATIVE); EPITHELIAL CELLS,URINE RARE (NONE-FEW); RBC,URINE 0-1 (0-2/HPF); WBC,URINE 0-1 (0-5/HPF)
[2024-03-15] MEDS: Piperacillin/Tazobactam 4.5 GM in Sodium Chloride 0.9% 100 ML IV ONE (11:47)
[2024-03-15] MEDS: HYDROmorphone 1 MG/ML Syringe IVPUSH ONE (12:21)
[2024-03-15 12:31] VITALS: BP 121/88
[2024-03-15 12:32] VITALS: PULSE 97
== END 2024-03-15 13:10 ==
LOC: MW.ED 06:58
DX: K65.1 Peritoneal abscess (principal); E66.9 Obesity, unspecified; Z88.0 Allergy status to penicillin; Z91.013 Allergy to seafood; Z68.41 Body mass index [BMI] 40.0-44.9, adult
CPT/HCPCS: 36415; 74177; 80053; 81001; 83690; 85025; 87040; 96361; 96365; 96375; 96376; 99285; J1170; J2270; J2543; J3490; J7030; Q9967

== ENCOUNTER 2024-04-07 07:22 | Emergency (ER) | payer BC ==
[2024-04-07 07:49] LABS: BASOPHILS ABSOLUTE AUTO 0.04 K/uL (0.00-0.20); BASOPHILS PERCENT AUTO 0.4 % (0.0-1.0); EOSINOPHILS ABSOLUTE AUTO 0.16 K/uL (0.00-0.45); EOSINOPHILS PERCENT AUTO 1.6 % (0.0-6.0); HEMATOCRIT 45.1 % (42.0-52.0); HEMOGLOBIN 15.2 g/dL (14.0-18.0); IMMATURE GRAN ABSOLUTE AUTO 0.08 K/uL (0.00-0.05); IMMATURE GRAN PERCENT AUTO 0.8 % (0.0-0.4); LYMPHOCYTES ABSOLUTE AUTO 1.98 K/uL (1.00-4.80); LYMPHOCYTES PERCENT AUTO 19.8 % (24.0-44.0); MEAN CORPUSCULAR HEMOGLOBIN 29.2 pg (28.0-32.0); MEAN CORPUSCULAR HGB CONC 33.7 g/dL (32.0-36.0); MEAN CORPUSCULAR VOLUME 86.6 fL (83.0-99.0); MEAN PLATELET VOLUME 8.6 fL (9.4-12.4); MONOCYTES ABSOLUTE AUTO 1.05 K/uL (0.00-0.80); MONOCYTES PERCENT AUTO 10.5 % (0.0-8.0); NEUTROPHILS ABSOLUTE AUTO 6.69 K/uL (1.80-7.70); NEUTROPHILS PERCENT AUTO 66.9 % (41.0-71.0); PLATELET COUNT,PLT 439 K/uL (150-400); RED BLOOD CELL COUNT 5.21 M/uL (4.52-5.90)
[2024-04-07 08:21] LABS: A/G RATIO 0.9 (0.9-1.6); BILIRUBIN TOTAL 0.6 mg/dL (0.2-1.0); CALCIUM 9.3 mg/dL (8.5-10.1); CARBON DIOXIDE,CO2 26.9 mmol/L (21.0-32.0); EST CRCL DRUG DOSING (CG) 102.4 mL/min; POTASSIUM,K 4.1 mmol/L (3.5-5.1); PROTEIN TOTAL,TP 8.4 g/dL (6.4-8.2)
[2024-04-07 08:24] LABS: LACTIC ACID 0.9 mmol/L (0.4-2.0)
[2024-04-07] MEDS: Iopamidol 755 MG/ML 500 ML Multipack Bottle IVPUSH STA (08:31)
[2024-04-07] MEDS: Piperacillin/Tazobactam 4.5 GM in Sodium Chloride 0.9% 100 ML IV ONE (10:18)
[2024-04-07] MEDS: Sodium Chloride 0.9% 10 ML Syringe FLUSH PRN (10:19)
[2024-04-07] MEDS: Sodium Chloride 0.9% 2.5 ML Syringe FLUSH PRN (10:19)
[2024-04-07 11:02] VITALS: BP 108/87; PULSE 80
== END 2024-04-07 11:05 ==
LOC: MW.ED 07:22
DX: K57.20 Diverticulitis of large intestine with perforation and abscess without bleeding (principal); E66.9 Obesity, unspecified; Z88.0 Allergy status to penicillin; Z88.8 Allergy status to other drugs, medicaments and biological substances; Z79.899 Other long term (current) drug therapy; Z68.41 Body mass index [BMI] 40.0-44.9, adult; Z75.8 Other problems related to medical facilities and other health care
CPT/HCPCS: 36415; 74177; 80053; 83605; 83690; 85025; 96365; 99285; J2543; J3490; Q9967